=== PATIENT | male | born 1995 | race Caucasian/White ===

== ENCOUNTER 2016-10-28 18:07 | Emergency (ER) | payer MEDICAID ==
[2016-10-28 18:11] VITALS: BP 124/78; PULSE 128; RESP 16; TEMP 97.9; O2SAT 98
--- NOTE | 2016-10-28 18:26 | EDPHY ---
H & P Time Seen by Provider: 10/28/16 18:19 HPI/ROS: CHIEF COMPLAINT: "Bumps on head, bump on foot" HISTORY OF PRESENT ILLNESS: 21-year-old male arrives via private vehicle with 2 complaints: 1st complaint is several months of nontender lesions on his scalp, vertex. Atraumatic. Nondraining. 2nd complaint is right forefoot plantar wound. States that several months ago he stepped on a piece of wood, has subsequent wood splinter removed an urgent care but is concerned there may be retained foreign body. No discoloration. He is able to bear weight. Patient lives in [place]. PHYSICAL EXAM (Prior to examination, patient consented to physical exam, hands were washed and my usual and customary physical exam procedures followed) 1) GENERAL: Well-developed, well-nourished, alert and oriented. Appears to be in no acute distress. 2) HEAD: Normocephalic. On the vertex of the patient's scalp he has 2 discrete nontender freely mobile lesions, possible Pilar cyst. Non erythematous. Nondraining. 3) HEENT: sclera anicteric 4) LUNGS: Breathing comfortably. 5) SKIN: normal coloration 6) MUSCULOSKELETAL: on the right plantar forefoot he has a wart like lesion which is nontender, non discolored, nondraining, soft compartments, no crepitus. Smoking Status: Current every day smoker Constitutional: Initial Vital Signs Temperature (C) 36.6 C 10/28/16 18:09 Heart Rate 128 H 10/28/16 18:09 Respiratory Rate 16 10/28/16 18:09 Blood Pressure 124/78 H 10/28/16 18:09 O2 Sat (%) 98 10/28/16 18:09 O2 Delivery Mode Room Air Allergies/Adverse Reactions: No Known Allergies Allergy (Unverified 10/28/16 18:12) Home Medications: Medication Instructions Recorded NK [No Known Home Meds] 10/28/16 MDM/Departure - [facility] ED Course/Re-evaluation: Regarding the patient's lesions on his scalp, these may be secondary to Pilar cyst, may be secondary to lipoma, the secondary to malignancy. These have been present for several months. They are not infected. No indication for antibiotics. Recommend follow-up as he may necessitate biopsy. Definitely recommended further evaluation. Regarding the patient's lesion on his right forefoot plantar aspect this appears to be consistent with a plantar wart. We discussed for treatment and some of the challenges associated with this. He was concerned that there may be a piece of wood after he stepped on a wood splinter several months ago. He has been informed that retained foreign body not ruled out however at this time do not think that incision is indicated. This area Does not appear infected, no signs of cellulitis. Usual and customary discharge precautions instructions provided - Depart Disposition: Home, Routine, Self-Care Clinical Impression: Plantar wart of right foot, Lesion of skin of scalp Condition: Good Instructions: Plantar Wart (ED) Additional Instructions: Return to the ER if you develop redness, swelling, drainage or any other symptoms that concern you Referrals: [facility] [Outside] - 5-7 days, call for appt.
== END 2016-10-28 18:25 | disposition home or self-care (01) ==
DX: L98.9 Disorder of the skin and subcutaneous tissue, unspecified (principal); B07.0 Plantar wart; F17.200 Nicotine dependence, unspecified, uncomplicated